=== PATIENT | female | born 1960 | race Caucasian/White ===

== ENCOUNTER 2017-02-25 19:55 | Observation (INO) | payer MEDICAID ==
[~2017-02-25] VITALS: Ht 165.1 cm; Wt 72.6 kg
[2017-02-25] MEDS ORDERED: ACTIVATED CHARCOAL 50 GM/240 ML SOL PO ONE (20:15)
[2017-02-25] MEDS ORDERED: SODIUM CHLORIDE 0.9% 1,000 ML IV ONE (20:45)
[2017-02-25 23:13] LABS: Urine WBC None Seen /hpf (0 - 5)
[2017-02-25 23:28] LABS: Urine Bacteria NONE SEEN /hpf (None Seen); Urine Blood Negative /uL (Negative); Urine Specific Gravity 1.004 (1.001-1.035)
[2017-02-25 23:39] LABS: Amphetamine Screen, Urine NEGATIVE (NEGATIVE); Barbiturate Scree,Urine NEGATIVE (NEGATIVE); Benzodiazephine Screen, Urine NEGATIVE (NEGATIVE); Cannabinoid Screen, Urine NEGATIVE (NEGATIVE); Cocaine Screen, Urine NEGATIVE (NEGATIVE); Opiate Scree,Urine NEGATIVE (NEGATIVE); Phencyclidine Screen, Urine NEGATIVE (NEGATIVE)
[2017-02-25 23:48] LABS: Basophils # (auto) 0.1 uL; Basophils % (auto) 1.2 % (0.0-2.0); Eosinophils # (auto) 0.2 uL; Eosinophils % (auto) 2.9 % (0.0-7.0); Hematocrit 43.3 % (36.0-46.0); Hemoglobin 14.3 g/dL (12.2-16.2); Lymphocytes # (auto) 3.2 uL; Lymphocytes % (auto) 37.1 % (10.0-50.0); Mean Corpuscular Hemoglobin 32.6 pg (28.0-32.0); Mean Corpuscular Hgb Conc. 33.1 g/dL (32.0-36.0); Mean Corpuscular Volume 98.5 fL (80.0-100.0); Monocytes # (auto) 0.9 uL; Monocytes % (auto) 10.6 % (0.0-12.0); Neutrophils # (auto) 4.1 uL; Neutrophils % (auto) 48.2 % (37.0-80.0); Nucleated Red Blood Cells % 0.1 %; Platelet Count (auto) 275 10^3/uL (140-450); Red Blood Cells 4.39 10^6/uL (4.0-5.20); Red Cell Distribution Width 14.9 % (11.8-14.3); White Blood Cell 8.5 10^3/uL (4.4-10.8)
[2017-02-25 23:55] LABS: Albumin 3.9 g/dL (3.4-5.0); BUN/Creatinine Ratio 9.1; Calcium 8.8 mg/dL (8.5-10.1); Potassium 3.3 mmol/L (3.5-5.1); Salicylate 4.5 mg/dL (2.8-20.0)
[2017-02-25 23:57] LABS: Acetaminophen < 2.0 ug/mL (10-30)
[2017-02-25 23:58] LABS: Bilirubin, Total 0.2 mg/dL (0.2-1.0)
[2017-02-26] MEDS ORDERED: THIAMINE HCL 100 MG/ML 2ML VIAL IV ONE (00:45)
[2017-02-26] MEDS ORDERED: GABAPENTIN 300 MG CAP PO ONE (08:00)
[2017-02-27] MEDS ORDERED: ZOLPIDEM TARTRATE 5 MG TAB PO ONE (01:15)
[2017-02-27] MEDS ORDERED: PRA1C PO (20:57)
[2017-02-27] MEDS ORDERED: GABA100C9 PO (20:59)
[2017-02-27] MEDS ORDERED: ALPR0.254 PO (20:59)
[2017-02-28] MEDS ORDERED: ALPRAZolam 0.5 MG TAB ONE (11:51)
[2017-02-28] MEDS ORDERED: OLANZapine 5 MG TAB ONE (11:51)
[2017-02-28] MEDS ORDERED: OLANZapine 5 MG TAB PO ONE ×2 (11:52→12:15)
[2017-02-28] MEDS ORDERED: ALPRAZolam 0.5 MG TAB PO ONE (11:52)
[2017-02-28 12:00] VITALS: BP 115/57
[2017-02-28] MEDS ORDERED: ALPRAZolam 0.5 MG TAB PO PRN (12:00)
[2017-02-28] MEDS ORDERED: ZOLPIDEM TARTRATE 5 MG TAB PO PRN (12:00)
[2017-02-28] MEDS ORDERED: OLANZapine 5 MG TAB PO SCH (22:00)
== END 2017-02-28 21:20 | disposition home or self-care (01) | DRG 918 ==
LOC: EDBD 19:55 → ER 19:55 → UNDOADMOB 19:56 → OVERFLOW 19:56 → ER 02-28 21:20
PROVIDERS: ADMIT Emergency Medicine; ATTEND Emergency Medicine
DX: T50.902A Poisoning by unspecified drugs, medicaments and biological substances, intentional self-harm, initial encounter (principal); F32.9 Major depressive disorder, single episode, unspecified; F41.9 Anxiety disorder, unspecified; Y92.89 Other specified places as the place of occurrence of the external cause
CPT/HCPCS: 36415; 80053; 80307; 80320; 80329; 81001; 85025; 96361; 96374; 99285; G0378